=== PATIENT | male | born 1985 | race African-American/Black ===

== ENCOUNTER 2021-08-30 17:33 | Emergency (ER) | payer SELFPAY ==
[2021-08-30 17:44] VITALS: TEMP 98.1; BMI 28.1
[2021-08-30 18:58] LABS: BASO % 0.6 % (0-2.0); EOS % 1.1 % (0-4.5); HEMATOCRIT 39.9 % (35.4-49); HEMOGLOBIN 13.2 GM/dL (11.7-16.9); LYMPH % 31.2 % (8-40); MCH 27.7 pg (25.7-33.7); MCHC 33.2 g/dl (32.0-35.9); MEAN CELL VOLUME 83.4 fl (80-96); MEAN PLT VOLUME 7.6 fl (7.5-11.1); MONO % 8.3 % (3.8-10.2); NEUT % 58.8 % (42.8-82.8); PLATELET COUNT 228 10^3/uL (134-434); RBC 4.79 M/mm3 (4.00-5.60); RDW 13.6 % (11.9-15.9); WHITE BLOOD COUNT 4.1 K/mm3 (4.0-10.0)
[2021-08-30 19:04] LABS: CHLORIDE 108 mmol/L (98-107); SODIUM 142 mmol/L (136-145)
[2021-08-30 19:06] LABS: CALCIUM 9.2 mg/dL (8.5-10.1)
[2021-08-30 19:07] LABS: ALBUMIN 3.9 g/dl (3.4-5.0); ANION GAP 5 MMOL/L (8-16); BLOOD UREA NITROGEN 15.9 mg/dL (7-18); CO2 30 mmol/L (21-32); GLUCOSE,RANDOM 87 mg/dL (74-106)
[2021-08-30 19:10] LABS: CREATININE 1.5 mg/dL (0.55-1.3); SGOT/AST 16 U/L (15-37); SGPT/ALT 22 U/L (13-61)
[2021-08-30 19:11] LABS: BILIRUBIN,TOTAL 0.3 mg/dL (0.2-1)
[2021-08-30 19:12] LABS: TOT PROT 6.9 g/dl (6.4-8.2)
[2021-08-30 19:13] LABS: ALK PHOS 66 U/L (45-117)
[2021-08-30] MEDS ORDERED: SODIUM CHLORIDE 0.9% 500 ML INFUS.BAG IV ONE (19:52)
[2021-08-30 21:26] VITALS: BP 124/75; PULSE 80
== END 2021-08-30 21:30 | disposition home or self-care (01) ==
LOC: JER 17:33
DX: F41.9 Anxiety disorder, unspecified (principal); R07.9 Chest pain, unspecified
CPT/HCPCS: 36415; 71045-TC-FY; 80053; 82550; 82553; 84484; 85025; 93005; 93010; 99285-25; C9803; U0003; U0005